=== PATIENT | male | born 1940 | race Caucasian/White ===

== ENCOUNTER → 2018-05-31 | Outpatient (CLI) | payer OTHER ==
[~2018-05-31] MED LIST: ASA81BEC PO; ASPIRIN EC81 M1 PO; ATENOLOL 25 MG25 M1 PO; CEPACOL SORE THROAT PO; CO Q-1010 MG PO; COZAAR 25 MG TA25 M2 PO; COZAAR 50 MG TA50 M2 PO; DIMENHYDRINATE50 MG PO; DIPHENHYDRAMINE25 M3 PO; DISOPYRAMIDE PO; ENOXAPARIN120 MG/0.8 SQ; FERREX PO; FISH OIL 1,001000 M1 PO; GLUCOPHAGE500 MG PO; GLUCOSAMINE CH1 EAC7 PO; Hydrocodone-Apap 5-325 Tablet PO; IBUPROFEN 400400 M2 PO; JANTOVEN7.5 MG PO; LACTAID EXT4500 UNIT PO; LIPITOR10 MG PO; LIPITOR40 MG PO; LORTAB 5 MG/5001 TA1 PO; MOTION RELIEF25 MG PO; Milk Of Magnesia Conc. PO; PERCOCET 5-3251 EACH PO; PERCOCET PO; PHISOHEX TOP; PRILOSEC 10MG C10 M1 PO; PROAIR HFA8.5 GM INH; PROBIOTIC1 EAC1 PO; QVAR HFA 880 MCG/UN1 INH; SIMVASTATIN80 MG PO; SINGULAIR 10 MG10 MG PO; Senna-Time S Tablet PO; TOPROL XL100 MG PO; UNICOMPLEX M TA1 TA1 PO; VERAPAMIL HCL120 M1 PO; VERAPAMIL SR 1120 M1 PO; WARFARIN 7.5 MG PO; ZPAK PO; [UNRECOGNIZED DRUG - OTHER] MUCOUS MEM; [UNRECOGNIZED DRUG - OTHER] PO
== END ==
LOC: RAD 10:31
DX: J45.40 Moderate persistent asthma, uncomplicated (principal)

== ENCOUNTER 2019-10-22 12:09 | Inpatient (IN) | payer OTHER ==
[~2019-10-22] VITALS: Ht 170.2 cm; Wt 106.1 kg
[2019-10-22 12:12] VITALS: BP 143/60
[2019-10-22 12:46] LABS: ABSOLUTE NEUTROPHILS 5.4 thou/uL (1.4-8.2); BASOPHILS 0.6 % (0.0-2.0); EOSINOPHILS 2.5 % (0.0-3.0); HEMATOCRIT 33.2 % (42.0-52.0); HEMOGLOBIN 11.3 gm/dL (14.0-18.0); LYMPHOCYTES 9.5 % (24.0-44.0); MCH 31.6 pg (26.0-34.0); MCHC 34.2 g/dL (28.0-37.0); MCV 92.5 fL (80.0-100.0); MONOCYTES 7.2 % (1.0-8.0); PLATELET COUNT 256 thou/uL (150-400); POLYS 80.2 % (36.0-66.0); RBC 3.58 mil/uL (4.50-6.00); RDW 15.2 % (10.5-14.5); WBC 6.8 thou/uL (4.0-11.0)
[2019-10-22 12:50] LABS: ANION GAP 8 mmol/L (7-16); BUN 15 mg/dL (7-18); CALCIUM 8.6 mg/dL (8.5-10.1); CHLORIDE 103 mmol/L (98-107); CO2 28 mmol/L (21-32); CREATININE 1.7 mg/dL (0.7-1.3); GLUCOSE 124 mg/dL (74-106); SODIUM 139 mmol/L (136-145)
[2019-10-22] MEDS ORDERED: COUMADIN 5 MG TA5 M1 PO (12:53)
[2019-10-22] MEDS ORDERED: COUMADIN7.5 MG PO (12:53)
[2019-10-22] MEDS ORDERED: METFORMIN HCL500 M3 PO (12:54)
[2019-10-22 12:55] LABS: APTT 46.8 Seconds (24.5-32.8); INR 3.6; PROTIME 36.9 Seconds (9.3-11.4)
[2019-10-22 12:59] LABS: SGOT 33 U/L (15-37); SGPT 28 U/L (30-65); TOTAL BILIRUBIN 0.8 mg/dL (<0.1-1.0); TOTAL PROTEIN 7.2 g/dL (6.4-8.2); TROPONIN-I <0.06 ng/mL (<0.06)
[2019-10-22 15:03] VITALS: BP 135/57
[2019-10-22] MEDS ORDERED: SYMBICORT160 MCG/4. INH (15:19)
[2019-10-22] MEDS ORDERED: TOPROL XL100 MG PO (15:20)
[2019-10-22] MEDS ORDERED: CARDIZEM CD120 MG PO (15:23)
[2019-10-22] MEDS ORDERED: CO Q-10200 MG PO (15:24)
[2019-10-22] MEDS ORDERED: TRIAMTERENE-HC1 EAC2 PO (15:26)
[2019-10-22] MEDS ORDERED: PROAIR HFA8.5 GM INH (15:26)
[2019-10-22 15:48] VITALS: BP 137/54
[2019-10-22 16:27] VITALS: BP 152/61
--- NOTE | 2019-10-22 17:57 | NUR ---
NEW ADMIT FOR CHEST C SOB WHEN AMBULATING. ALERTX4 FROM HOME. NSR/BBB ON TELE. UP AB TARSHA TO TOILET. ADISSION ASSESTMENT, EDUCATION, HISTORY, COMPLETED. CONSENT SIGNED. ORDERS ACKNOWLEDGED. INTERMITENT LEFT SIDE CHEST PAIN RATING 3/10. CALL LIGHT AND PERSONAL ITEM IN REACH.
[2019-10-22 20:45] VITALS: BP 135/52
[2019-10-23 05:41] LABS: HEMATOCRIT 31.9 % (42.0-52.0); HEMOGLOBIN 10.9 gm/dL (14.0-18.0); MCH 31.4 pg (26.0-34.0); MCHC 34.1 g/dL (28.0-37.0); MCV 92.1 fL (80.0-100.0); RBC 3.47 mil/uL (4.50-6.00); RDW 14.6 % (10.5-14.5); WBC 6.5 thou/uL (4.0-11.0)
[2019-10-23 05:44] VITALS: BP 94/60
[2019-10-23 06:08] LABS: ANION GAP 8 mmol/L (7-16); BUN 16 mg/dL (7-18); CALCIUM 8.6 mg/dL (8.5-10.1); CHLORIDE 104 mmol/L (98-107); CO2 27 mmol/L (21-32); CREATININE 1.5 mg/dL (0.7-1.3); GLUCOSE 97 mg/dL (74-106); MAGNESIUM 1.9 mg/dL (1.8-2.4); POTASSIUM 4.1 mmol/L (3.5-5.1); SODIUM 139 mmol/L (136-145); TROPONIN-I <0.06 ng/mL (<0.06)
--- NOTE | 2019-10-23 06:56 | NUR ---
ASSUMED PT CARE AT AROUND 1930, PT IS AWAKE, ALERT AND ORIENTEDX4, MAKES OWN NEEDS KNOWN, DENIES CHEST PAIN OR SOB, C/O HEADACHE, MEDICATED WITH PRN MEDS WITH COMPLETE RELIEF, C/O CHRONIC BACK PAIN, MEDICATED PRN, WITH PARTIAL RELIEF, SR/BBB ON THE MONITOR, VSS, RESTING WITH NO DISTRESS NOTED, WILL PASS ON REPORT
[2019-10-23 08:00] VITALS: BP 159/53
[2019-10-23 10:18] LABS: INR 2.9; PROTIME 30.2 Seconds (9.3-11.4)
--- NOTE | 2019-10-23 10:18 | EKG ---
[facility] [place] [address] [address] ELECTROCARDIOGRAM REPORT Name: TAMMIE CESPEDES Room #: 214-P ADM IN M.R.#: [id number] Admission: 10/22/19 Attend Phys: Terence Flood MD Discharge: Date of : 44 Report #: [id number] THIS REPORT FOR: cc: Juan Pablo Porter James A. DO Lundgren,Vadim Obrien MD [facility] ~ THIS REPORT FOR: //name// [facility] ED Test Date: 2019-10-22 Test Time: 12:24:57 Pat Name: TAMMIE CESPEDES Department: Room: 214 Gender: M Or First Assist Registered Nurse: BÁRBARA : 1940 Requested By: Emilee Estrada Order Number: [id number] MD: Vadim Travis Measurements Intervals [place] Rate: 70 P: 100 CA: 348 QRS: 42 QRSD: 159 T: 162 QT: 401 QTc: 433 Interpretive Statements Sinus rhythm Prolonged CA interval Left bundle branch block Compared to ECG 01/25/2015 07:38:20 No significant change was found Electronically Signed On 10-23-2019 10:16:18 CDT by Vadim Travis [email or web address] <ELECTRONICALLY SIGNED> By: Vadim Travis MD, [facility] 10/23/19 1016 1224 1224 Vadim Travis MD, [facility] /EPI
--- NOTE | 2019-10-23 10:29 | EKG ---
[facility] [place] [address] [place] [address] ELECTROCARDIOGRAM REPORT Name: TAMMIE CESPEDES Room #: 214-P ADM IN M.R.#: [id number] Admission: 10/22/19 Attend Phys: Terence Flood MD Discharge: Date of : 44 Report #: [id number] THIS REPORT FOR: cc: Juan Pablo Porter James A. DO Lundgren, Craig H. 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 : 1940 Requested By: Terence Flood Order Number: [id number] MD: Vadim Travis Measurements Intervals [place] Rate: 72 P: 245 MO: 346 QRS: 28 QRSD: 155 T: 165 QT: 412 QTc: 451 Interpretive Statements Sinus rhythm Prolonged MO interval Left bundle branch block Baseline wander in lead(s) V3 Compared to ECG 01/25/2015 07:38:20 No significant change was found Electronically Signed On 10-23-2019 10:27:31 CDT by Vadim Travis [email or web address] <ELECTRONICALLY SIGNED> By: Vadim Travis MD, [facility] 10/23/19 1027 1007 1007 Vadim Travis MD, [facility] /EPI
[2019-10-23 12:00] VITALS: BP 143/58
[2019-10-23] MEDS ORDERED: ACETAMINOPHEN325 M1 PO (13:03)
[2019-10-23] MEDS ORDERED: NITROGLYCERIN0.4 MG SUBLING (13:03)
[2019-10-23] MEDS ORDERED: COUMADIN 5 MG TA5 M1 PO (13:03)
[2019-10-23 13:22] VITALS: BP 159/53
== END 2019-10-23 14:53 | disposition home or self-care (01) | DRG 303 ==
LOC: ER 12:09 → 2N 13:39 → EROBS 13:39 → 2N 15:52
PROVIDERS: Physician Assistant; ADMIT Internal Medicine
PROC: 5A09357 Assistance with Respiratory Ventilation, Less than 24 Consecutive Hours, Continuous Positive Airway Pressure (ICD-10-PCS; principal; 2019-10-22)
DX: I25.10 Atherosclerotic heart disease of native coronary artery without angina pectoris (principal); D68.9 Coagulation defect, unspecified; I10 Essential (primary) hypertension; E11.9 Type 2 diabetes mellitus without complications; E78.00 Pure hypercholesterolemia, unspecified; J45.909 Unspecified asthma, uncomplicated; E78.5 Hyperlipidemia, unspecified; Z86.73 Personal history of transient ischemic attack (TIA), and cerebral infarction without residual deficits; Z95.2 Presence of prosthetic heart valve; Z79.899 Other long term (current) drug therapy; Z79.82 Long term (current) use of aspirin; Z79.84 Long term (current) use of oral hypoglycemic drugs; Z79.2 Long term (current) use of antibiotics; Z88.6 Allergy status to analgesic agent; Z88.1 Allergy status to other antibiotic agents; Z88.5 Allergy status to narcotic agent
CPT/HCPCS: 10081

== ENCOUNTER → 2019-11-30 | Outpatient (CLI) | payer OTHER ==
[~2019-11-30] MED LIST changes: +ACETAMINOPHEN325 M1 PO; +CARDIZEM CD120 MG PO; +CO Q-10200 MG PO; +COUMADIN 5 MG TA5 M1 PO; +COUMADIN7.5 MG PO; +METFORMIN HCL500 M3 PO; +NITROGLYCERIN0.4 MG SUBLING; +SYMBICORT160 MCG/4. INH; +TRIAMTERENE-HC1 EAC2 PO
== END ==
LOC: SJCVC 14:44 → SJCVCIMAG 14:44
PROVIDERS: ATTEND Internal Medicine Cardiovascular Disease
DX: M79.605 Pain in left leg (principal); R22.42 Localized swelling, mass and lump, left lower limb; I42.9 Cardiomyopathy, unspecified; I44.7 Left bundle-branch block, unspecified; R94.31 Abnormal electrocardiogram [ECG] [EKG]; I12.9 Hypertensive chronic kidney disease with stage 1 through stage 4 chronic kidney disease, or unspecified chronic kidney disease; N18.9 Chronic kidney disease, unspecified; I25.10 Atherosclerotic heart disease of native coronary artery without angina pectoris; E78.00 Pure hypercholesterolemia, unspecified; R60.9 Edema, unspecified; M19.90 Unspecified osteoarthritis, unspecified site; J45.909 Unspecified asthma, uncomplicated; Z95.2 Presence of prosthetic heart valve; Z79.84 Long term (current) use of oral hypoglycemic drugs; Z79.82 Long term (current) use of aspirin; Z79.899 Other long term (current) drug therapy

== ENCOUNTER → 2019-12-07 | Outpatient (CLI) | payer OTHER | LOC: SJCVCIMAG 12:53 | PROVIDERS: ATTEND Internal Medicine Cardiovascular Disease | DX: I44.0 Atrioventricular block, first degree (principal); I44.7 Left bundle-branch block, unspecified; I42.9 Cardiomyopathy, unspecified; I25.10 Atherosclerotic heart disease of native coronary artery without angina pectoris; I10 Essential (primary) hypertension; E78.5 Hyperlipidemia, unspecified; J44.9 Chronic obstructive pulmonary disease, unspecified; E11.9 Type 2 diabetes mellitus without complications; R60.9 Edema, unspecified; E78.00 Pure hypercholesterolemia, unspecified; M19.90 Unspecified osteoarthritis, unspecified site; J45.909 Unspecified asthma, uncomplicated; Z79.82 Long term (current) use of aspirin; Z79.899 Other long term (current) drug therapy; Z88.8 Allergy status to other drugs, medicaments and biological substances; Z88.1 Allergy status to other antibiotic agents; Z79.84 Long term (current) use of oral hypoglycemic drugs; Z79.01 Long term (current) use of anticoagulants ==

== ENCOUNTER → 2020-04-19 | Outpatient (CLI) | payer OTHER | LOC: LAB 13:23 | PROVIDERS: ATTEND Internal Medicine | DX: Z01.812 Encounter for preprocedural laboratory examination (principal); Z20.828 Contact with and (suspected) exposure to other viral communicable diseases ==

== ENCOUNTER → 2020-05-02 | Outpatient (CLI) | payer OTHER | LOC: LAB 13:01 | PROVIDERS: ATTEND Internal Medicine | DX: Z01.812 Encounter for preprocedural laboratory examination (principal); Z20.828 Contact with and (suspected) exposure to other viral communicable diseases ==

== ENCOUNTER → 2020-08-21 | Outpatient (CLI) | payer OTHER | LOC: SJCVC 13:06 | PROVIDERS: ATTEND Internal Medicine Cardiovascular Disease | DX: R94.31 Abnormal electrocardiogram [ECG] [EKG] (principal); I44.0 Atrioventricular block, first degree; I44.7 Left bundle-branch block, unspecified; E78.00 Pure hypercholesterolemia, unspecified; I42.9 Cardiomyopathy, unspecified; I25.10 Atherosclerotic heart disease of native coronary artery without angina pectoris; E11.9 Type 2 diabetes mellitus without complications; M19.90 Unspecified osteoarthritis, unspecified site; J45.909 Unspecified asthma, uncomplicated; I12.9 Hypertensive chronic kidney disease with stage 1 through stage 4 chronic kidney disease, or unspecified chronic kidney disease; N18.9 Chronic kidney disease, unspecified; R60.0 Localized edema; G43.909 Migraine, unspecified, not intractable, without status migrainosus; Z79.899 Other long term (current) drug therapy; Z79.82 Long term (current) use of aspirin; Z88.5 Allergy status to narcotic agent; Z79.01 Long term (current) use of anticoagulants; Z95.2 Presence of prosthetic heart valve ==

== ENCOUNTER → 2020-09-20 | Outpatient (CLI) | payer OTHER | LOC: LAB 12:25 | PROVIDERS: ATTEND Internal Medicine | DX: Z20.822 Contact with and (suspected) exposure to COVID-19 (principal) ==

== ENCOUNTER → 2020-09-25 | Outpatient (CLI) | payer OTHER | LOC: SJCVC 10:14 | PROVIDERS: ATTEND Internal Medicine Cardiovascular Disease | DX: Z51.81 Encounter for therapeutic drug level monitoring (principal); M19.90 Unspecified osteoarthritis, unspecified site; J45.909 Unspecified asthma, uncomplicated; I48.20 Chronic atrial fibrillation, unspecified; I25.10 Atherosclerotic heart disease of native coronary artery without angina pectoris; I10 Essential (primary) hypertension; E78.00 Pure hypercholesterolemia, unspecified; G47.33 Obstructive sleep apnea (adult) (pediatric); C44.529 Squamous cell carcinoma of skin of other part of trunk; Z95.4 Presence of other heart-valve replacement; Z79.01 Long term (current) use of anticoagulants; Z88.5 Allergy status to narcotic agent; Z88.1 Allergy status to other antibiotic agents; Z79.82 Long term (current) use of aspirin; Z79.84 Long term (current) use of oral hypoglycemic drugs; Z79.1 Long term (current) use of non-steroidal anti-inflammatories (NSAID); Z79.899 Other long term (current) drug therapy ==

== ENCOUNTER → 2020-09-25 | Outpatient (CLI) | payer OTHER ==
--- NOTE | 2020-09-27 17:31 | MCT ---
[facility] [place] [address] [address] METHACHOLINE CHALLENGE TEST Name: TAMMIE CESPEDES Room #: REG [facility] [place]#: [id number] Admission: 09/25/20 Attend Phys: Roland Erickson MD Discharge: Date of : 44 Report #: [id number] THIS REPORT FOR: //name// COPIES FOR: AGE: 80 SEX/RACE: M/C Height: 72 in Exam Date: 09/25/20 Weight: 225 lbs BTPS: X >> PRE BRONCHODILATOR: PREDICTED BEST %PRED FORCED VITAL CAPACITY (FRC) 4.46 L LPM % FORCED EXP VOL/SEC (FEV1) 2.87 L FEV/FVC % MAX MID-EXP FLOW (FEF 25-75) 2.39 L/SEC L/SEC % PEAK EXP FLOW RATE (FEF MAX) 8.46 L/MIN L/MIN MED-VC RATIO (FEF 50/FEF 50) .09 Baseline: Phenol Saline Level 1: 0.025 mg/ml BEST %PRED %CHANGE BEST %PRED %CHANGE FVC 2.46 L 55 % % FVC 2.49 L 56 % 2 % FEV1 1.72 L 60 % % FEV1 1.72 L 60 % -0 % Level 2: 0.25 mg/ml Level 3: 2.5 mg/ml BEST %PRED %CHANGE BEST %PRED %CHANGE FVC 2.53 L 57 % 3 % FVC 2.56 L 57 % 4 % FEV1 1.77 L 62 % 3 % FEV1 1.72 L 60 % -0 % . Level 4: 10 mg/ml Level 5: 25 mg/ml BEST %PRED %CHANGE BEST %PRED %CHANGE FVC 2.43 L 54 % -1 % FVC 2.51 L 56 % 2 % FEV1 1.72 L 60 % -0 % FEV1 1.72 L 60 % -0 % Post Bronchodilator: 1st Treatment Post Bronchodilator: 2nd Treatment BEST %PRED %CHANGE BEST %PRED %CHANGE FVC 2.50 L 56 % 2 % FVC L % % FEV1 1.74 L 61 % 1 % FEV1 L % % Post Bronchodilator: 3rd Treatment BEST %PRED %CHANGE [facility] [address] [place] [address] METHACHOLINE CHALLENGE TEST Name: TAMMIE CESPEDES [place] Room #: REG [facility].#: [id number] Admission: 09/25/20 Attend Phys: Roland Erickson MD Discharge: Date of : 44 Report #: [id number] FVC L % % FEV1 L % % >> INTERPRETATION: The patient underwent a methacholine challenge test. PreMCT spirometry showed reduced flows. At the fifth level of methacholine concentration, the patient did not show evidence of FEV1 reduction. Post-MCT spirometry shows flows back to baseline. IMPRESSION: Negative methacholine challenge test. Flows are reduced without specific pattern. Clinical correlation is recommended. <ELECTRONICALLY SIGNED> By: Gregory Mccabe MD 09/27/20 1731 Gregory Mccabe MD /nt
== END ==
LOC: PUL 08:33
PROVIDERS: ATTEND Internal Medicine
DX: J45.40 Moderate persistent asthma, uncomplicated (principal)

== ENCOUNTER → 2020-09-26 | Outpatient (CLI) | payer OTHER | LOC: SJCVCIMAG 10:45 | PROVIDERS: ATTEND Internal Medicine Cardiovascular Disease | DX: I08.2 Rheumatic disorders of both aortic and tricuspid valves (principal); I44.0 Atrioventricular block, first degree; R94.31 Abnormal electrocardiogram [ECG] [EKG]; I45.4 Nonspecific intraventricular block; I42.9 Cardiomyopathy, unspecified; I25.10 Atherosclerotic heart disease of native coronary artery without angina pectoris; E78.00 Pure hypercholesterolemia, unspecified; I44.7 Left bundle-branch block, unspecified; R60.9 Edema, unspecified; J44.9 Chronic obstructive pulmonary disease, unspecified; M19.90 Unspecified osteoarthritis, unspecified site; G47.30 Sleep apnea, unspecified; G89.29 Other chronic pain; E11.22 Type 2 diabetes mellitus with diabetic chronic kidney disease; I13.10 Hypertensive heart and chronic kidney disease without heart failure, with stage 1 through stage 4 chronic kidney disease, or unspecified chronic kidney disease; N18.9 Chronic kidney disease, unspecified; Z90.49 Acquired absence of other specified parts of digestive tract; Z95.2 Presence of prosthetic heart valve; Z98.890 Other specified postprocedural states; Z88.8 Allergy status to other drugs, medicaments and biological substances; Z79.82 Long term (current) use of aspirin; Z79.84 Long term (current) use of oral hypoglycemic drugs; Z79.899 Other long term (current) drug therapy ==

== ENCOUNTER → 2020-10-08 | Outpatient (CLI) | payer OTHER | LOC: SJCVC 10:34 | PROVIDERS: ATTEND Internal Medicine Cardiovascular Disease | DX: Z51.81 Encounter for therapeutic drug level monitoring (principal); E11.9 Type 2 diabetes mellitus without complications; G47.33 Obstructive sleep apnea (adult) (pediatric); I48.91 Unspecified atrial fibrillation; I25.10 Atherosclerotic heart disease of native coronary artery without angina pectoris; I34.0 Nonrheumatic mitral (valve) insufficiency; I42.9 Cardiomyopathy, unspecified; E78.5 Hyperlipidemia, unspecified; Z79.01 Long term (current) use of anticoagulants ==

== ENCOUNTER → 2020-10-10 | Outpatient (CLI) | payer OTHER | LOC: SJCVC 10:45 | PROVIDERS: ATTEND Internal Medicine Cardiovascular Disease | DX: Z51.81 Encounter for therapeutic drug level monitoring (principal); I48.91 Unspecified atrial fibrillation; E11.9 Type 2 diabetes mellitus without complications; G47.33 Obstructive sleep apnea (adult) (pediatric); I25.10 Atherosclerotic heart disease of native coronary artery without angina pectoris; I42.9 Cardiomyopathy, unspecified; E78.5 Hyperlipidemia, unspecified; Z68.35 Body mass index [BMI] 35.0-35.9, adult; Z95.2 Presence of prosthetic heart valve; Z79.01 Long term (current) use of anticoagulants; Z79.82 Long term (current) use of aspirin; Z79.84 Long term (current) use of oral hypoglycemic drugs; Z79.899 Other long term (current) drug therapy ==

== ENCOUNTER → 2020-10-30 | Outpatient (CLI) | payer OTHER | LOC: SJCVC 11:08 | PROVIDERS: ATTEND Internal Medicine Cardiovascular Disease | DX: Z51.81 Encounter for therapeutic drug level monitoring (principal); M19.90 Unspecified osteoarthritis, unspecified site; M54.5 Low back pain; G89.29 Other chronic pain; I25.10 Atherosclerotic heart disease of native coronary artery without angina pectoris; N18.9 Chronic kidney disease, unspecified; E78.00 Pure hypercholesterolemia, unspecified; I42.2 Other hypertrophic cardiomyopathy; G47.30 Sleep apnea, unspecified; I34.0 Nonrheumatic mitral (valve) insufficiency; Z79.01 Long term (current) use of anticoagulants; Z79.82 Long term (current) use of aspirin; Z79.899 Other long term (current) drug therapy; Z88.8 Allergy status to other drugs, medicaments and biological substances ==

== ENCOUNTER → 2020-11-06 | Outpatient (CLI) | payer OTHER | LOC: SJCVC 10:18 | PROVIDERS: ATTEND Internal Medicine Cardiovascular Disease | DX: Z51.81 Encounter for therapeutic drug level monitoring (principal); E11.9 Type 2 diabetes mellitus without complications; G47.33 Obstructive sleep apnea (adult) (pediatric); I48.91 Unspecified atrial fibrillation; E78.5 Hyperlipidemia, unspecified; Z79.01 Long term (current) use of anticoagulants ==

== ENCOUNTER → 2021-07-12 | Outpatient (CLI) | payer OTHER ==
[~2021-07-12] MED LIST changes: +COLESTIPOL HCL1 G1 PO; +FLEXERIL PO; +FUROSEMIDE 20 M20 MG PO; +KLOR-CON M2020 MEQ PO; +LOPERAMIDE 2 MG2 M1 PO; +LOVENOX100 MG/1 M SUBQ; +MELATONIN10 M1 PO; +MULTI VITAMIN1 EACH PO; +PREDNISONE 10 M10 MG PO; +PROBIOTIC1 EAC7 PO; +PROTONIX40 M4 PO; +SOTALOL80 MG PO; +TAMSULOSIN HCL0.4 MG PO; +TRAMADOL 50 MG50 MG PO; +VITAMIN D3125 MC1 PO; +WARFARIN SODIUM5 MG PO
== END ==
LOC: LAB 11:01
PROVIDERS: ATTEND Student in an Organized Health Care Education/Training Program
DX: Z01.812 Encounter for preprocedural laboratory examination (principal); Z20.822 Contact with and (suspected) exposure to COVID-19

== ENCOUNTER → 2021-07-17 | Outpatient (CLI) | payer OTHER ==
[~2021-07-17] VITALS: Ht 170.2 cm; Wt 93.0 kg
--- NOTE | 2021-07-19 15:07 | PATH ---
[facility] [address] [address] [place] [address] PATHOLOGY RPT PROCEDURE Name: JORGE JOE ROBERT Room #: REG [facility].#: [id number] Admission: 07/17/21 Date of : 44 Discharge: Report #: [id number] Path Case #: [id number] LCA Accession Number: [id number] . 01 Material submitted: . PART A: gastrointestinal site - GASTRIC BX R/O H. PYLORI PART B: esophagus - DISTAL ESOPHAGUS BX. Modifiers: distal . 01 Clinical history: . CRCS . 02 Diagnosis: . A. Gastric, biopsy: - Gastric antral mucosa without significant histopathological abnormality. - An H. pylori immunohistochemical stain is negative for H. pylori-like organisms. . B. Distal esophagus, biopsy: - Squamous mucosa with features of mild reflux esophagitis. - Glandular mucosa without significant histopathological evaluation. - Negative for intestinal metaplasia/goblet cell metaplasia. - Negative for malignancy. (ANK:pit; 07/19/2021) QTP 07/19/2021 1418 Local . 02 Electronically signed: . Kalie Ross MD, Pathologist NPI- [id number] . 01 Gross description: . A. The specimen is received in formalin, labeled "Jorge Joe, gastric biopsy R/O H. pylori". Received are multiple ochoa fragments of soft tissue, ranging in size from 0.1-0.3 cm, in greatest dimension. The specimen is entirely submitted cassette A1. . B. The specimen is received in formalin, labeled " Jorge Joe, distal esophagus biopsy R/O Soares's". Received are 2 ochoa-white fragments of soft tissue, measuring 0.3 and 0.4 cm, in greatest dimension. The specimen is entirely submitted in cassette B1. (JGG; 07/18/2021) JGG/JGG 07/18/2021 1308 Local . 02 Pathologist provided ICD-10: K22.9 . 02 [place] [address] PATHOLOGY RPT PROCEDURE Name: JORGE JOE [id number] Admission: 07/17/21 Date of : 44 Discharge: Report #: [id number] Path Case #: [id number] Specimen Comment: A courtesy copy of this report has been sent to [phone], [phone] Specimen Comment: [phone] Specimen Comment: Report sent to / DR JACOBO Performed at: [address], [place], [place] [id number] MD Gustabo Raymundo MD Phone: [phone] Performed at: [address] [id number] MD Kalie Ross MD Phone: [phone]
--- NOTE | 2021-07-24 12:57 | P ---
[facility] [place] [address] [place] [address] PROCEDURE REPORT Name: TAMMIE CESPEDES Room #: REG [facility] Tony.#: [id number] Admission: 07/17/21 Attend Phys: Reese River Discharge: Date of : 44 Report #: [id number] THIS REPORT FOR: cc: Juan Pablo Porter James A. DO McElhinney, Christian C. MD ~ cc: Juan Pablo Porter DO DATE OF SERVICE: 07/17/2021 PROCEDURE PERFORMED: Colonoscopy. HISTORY OF PRESENT ILLNESS: The patient is a 80-year-old male here for screening colonoscopy. Last colonoscopy was in 2007 which was negative. Unsure if he has a family history of colon cancer. He denies any symptoms at this time. DESCRIPTION OF PROCEDURE: The risks and benefits of the procedure were explained to the patient, those risks including but not limited to bleeding, perforation and the risk of sedation. He understood these risks and gave informed consent. Sedation was given using propofol per anesthesia. Next, a digital rectal exam was initially performed, which was normal. Next, using a standard Olympus colonoscope, the scope was placed in the patient's anus and advanced under direct vision to the cecum. The overall prep was good. The cecum and ileocecal valve were normal in appearance. Diverticulosis was noted scattered throughout the ascending, transverse, descending and sigmoid colon. No evidence of inflammation, otherwise normal. The rectal mucosa was normal. On retroflexion, no abnormalities were noted. The scope was then withdrawn and the procedure terminated. The patient tolerated the procedure well. IMPRESSION: 1. Pandiverticulosis. 2. Otherwise, normal colonoscopy. RECOMMENDATIONS: 1. High fiber diet. 2. No repeat colonoscopy due to the patient's age. Thank you for allowing me to participate in his care. <ELECTRONICALLY SIGNED> By: Reese Rodriguez MD 07/24/21 1257 1041 1123 Reese Rodriguez MD /nt
--- NOTE | 2021-07-24 12:57 | P ---
[facility] [address] [place] [address] PROCEDURE REPORT Name: TAMMIE CESPEDES Room #: REG Kriss Tony.#: [id number] Admission: 07/17/21 Attend Phys: Reese River Discharge: Date of : 44 Report #: [id number] THIS REPORT FOR: cc: Juan Pablo Porter James A. DO McElhinney, Christian C. MD ~ cc: Juna Pablo Porter DO DATE OF SERVICE: 07/17/2021 PROCEDURE PERFORMED: Upper endoscopy with biopsies. HISTORY OF PRESENT ILLNESS: The patient is a 80-year-old male who has mild intermittent heartburn symptoms also clears his throat frequently. He denies any antacid use. Denies any dysphagia or nausea or vomiting. Plan is for EGD and colonoscopy today. DESCRIPTION OF PROCEDURE: The risks and benefits of the procedure were explained to the patient, those risks including but not limited to bleeding, perforation and the risk of sedation. He understood these risks and gave informed consent. Sedation was given using propofol per anesthesia. Next, using a standard Olympus upper endoscope, the scope was placed in the patient's mouth and advanced under direct vision through the esophagus, stomach and into the second portion of the duodenum. The larynx was normal. The upper and mid esophagus was normal in appearance. In the distal esophagus, a possible short segment of Soares's was noted. Biopsies were obtained. No evidence of esophagitis. Upon entering the stomach, a small hiatal hernia was noted. There was a mild diffuse gastritis in the gastric fundus and body. Biopsies were obtained to rule out H. pylori. No evidence of ulcerations or erosions. The pylorus was normal and patent. The duodenal bulb, first and second portion were all normal. The scope was then withdrawn and the procedure terminated. The patient tolerated the procedure well. IMPRESSION: 1. 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 2. Small hiatal hernia. 3. Gastritis. 4. Otherwise, normal upper endoscopy. RECOMMENDATIONS: 1. Await biopsy results. 2. Recommend a trial of daily PPI therapy to see if improvement with frequent clearing of his throat. If the patient does have Soares's, would recommend long-term PPI therapy. [facility] [address] [place] [address] PROCEDURE REPORT Name: TAMMIE CESPEDES ROBERT Room #: REG [facility] Tony.#: [id number] Admission: 07/17/21 Attend Phys: Reese River Discharge: Date of : 44 Report #: [id number] Thank you for allowing me to participate in his care. <ELECTRONICALLY SIGNED> By: Reese Rodriguez MD 07/24/21 1257 1016 1117 Reese Rodriguez MD /nt
== END | disposition home or self-care (01) ==
LOC: GI
PROVIDERS: ATTEND Specialist
DX: Z12.11 Encounter for screening for malignant neoplasm of colon (principal); K57.30 Diverticulosis of large intestine without perforation or abscess without bleeding; K22.70 Barrett's esophagus without dysplasia; K21.00 Gastro-esophageal reflux disease with esophagitis, without bleeding; K44.9 Diaphragmatic hernia without obstruction or gangrene; R12 Heartburn; I10 Essential (primary) hypertension; E11.9 Type 2 diabetes mellitus without complications; E78.5 Hyperlipidemia, unspecified; E78.00 Pure hypercholesterolemia, unspecified; I42.9 Cardiomyopathy, unspecified; J45.909 Unspecified asthma, uncomplicated; Z98.890 Other specified postprocedural states; Z79.899 Other long term (current) drug therapy; Z85.828 Personal history of other malignant neoplasm of skin; Z86.73 Personal history of transient ischemic attack (TIA), and cerebral infarction without residual deficits; Z90.49 Acquired absence of other specified parts of digestive tract; Z79.01 Long term (current) use of anticoagulants; Z95.2 Presence of prosthetic heart valve
CPT/HCPCS: 62110; 62900